=== PATIENT | female | born 1955 | race Caucasian/White ===

== ENCOUNTER 2023-05-10 09:17 | Day surgery (SDC) | payer MEDICARE, BC ==
[2023-05-09 11:08] VITALS: BMI 25.0
[2023-05-10] MEDS ORDERED: Oxymetazoline HCl 0.05% (30 ML BOT) ONE ×2 (10:12→11:00)
[2023-05-10 10:19] LABS: Hematocrit 40.1 % (36.0-47.0); Hemoglobin 13.5 g/dL (12.0-16.0)
[2023-05-10 10:44] LABS: Anion Gap 10 mmol/L (10-20); BUN (Urea Nitrogen) 20 mg/dL (9.8-20.1); Calc. Creatinine Clearance 59 mL/min (70-130); Calcium 9.4 mg/dL (7.8-10.44); Carbon Dioxide 25 mmol/L (23-31); Chloride 102 mmol/L (98-107); Estimated GFR 64; Glucose 89 mg/dL (80-115); Sodium 133 mmol/L (136-145)
[2023-05-10] MEDS ORDERED: Lidocaine 1% (PF) 30 ML VIAL ONE (11:00)
[2023-05-10] MEDS ORDERED: EPINEPHrine 1 MG/ML AMP ONE (11:00)
[2023-05-10] MEDS ORDERED: Midazolam HCl 2 mg/2 ml Vial ONE (11:02)
[2023-05-10] MEDS ORDERED: Dexmedetomidine 200 MCG/2 ML VIAL ONE (11:08)
[2023-05-10] MEDS ORDERED: fentaNYL PF 100 MCG/2 ML SYRINGE ONE (11:08)
[2023-05-10] MEDS ORDERED: SUGAMMADEX SODIUM 200 MG/2 ML VIAL ONE (11:08)
[2023-05-10] MEDS ORDERED: Ondansetron PF 4 MG/2 ML Vial ONE (11:18)
[2023-05-10] MEDS ORDERED: Lidocaine 1% PF 5 ML VIAL ONE (11:18)
[2023-05-10] MEDS ORDERED: Rocuronium Bromide 10 MG/ML (10ML VIAL) ONE (11:18)
[2023-05-10] MEDS ORDERED: Dexamethasone 20 MG/5 ML VIAL ONE (11:18)
[2023-05-10] MEDS ORDERED: PROPOFOL 200 MG/20 ML VIAL ONE (11:18)
[2023-05-10] MEDS ORDERED: Silver Nitrate Application 1 EACH ONE (11:40)
[2023-05-10] MEDS ORDERED: fentaNYL 50 mcg/mL 1 mL Vial ONE ×5 (12:08→13:22)
[2023-05-10] MEDS ORDERED: hydrALAZINE 20 MG/ML VIAL ONE (12:37)
[2023-05-10] MEDS ORDERED: Hydrocodone-Acetamin 15 ML UDCUP ONE (14:02)
== END 2023-05-10 14:45 | disposition home or self-care (01) ==
LOC: SDC 09:17
PROVIDERS: ATTEND Otolaryngology Plastic Surgery within the Head & Neck
PROC: 09BV8ZZ Excision of Left Ethmoid Sinus, Via Natural or Artificial Opening Endoscopic (ICD-10-PCS; principal; 2023-05-10)
PROC: 09BU8ZZ Excision of Right Ethmoid Sinus, Via Natural or Artificial Opening Endoscopic (ICD-10-PCS; 2023-05-10)
PROC: 099T8ZZ Drainage of Left Frontal Sinus, Via Natural or Artificial Opening Endoscopic (ICD-10-PCS; 2023-05-10)
PROC: 099Q8ZZ Drainage of Right Maxillary Sinus, Via Natural or Artificial Opening Endoscopic (ICD-10-PCS; 2023-05-10)
PROC: 099R8ZZ Drainage of Left Maxillary Sinus, Via Natural or Artificial Opening Endoscopic (ICD-10-PCS; 2023-05-10)
PROC: 099S8ZZ Drainage of Right Frontal Sinus, Via Natural or Artificial Opening Endoscopic (ICD-10-PCS; 2023-05-10)
DX: J33.0 Polyp of nasal cavity (principal); J32.4 Chronic pansinusitis; J34.89 Other specified disorders of nose and nasal sinuses; I10 Essential (primary) hypertension; E78.5 Hyperlipidemia, unspecified; Z79.899 Other long term (current) drug therapy
CPT/HCPCS: 31253; 31256; 80048; 85014; 85018; 93005; J0360; J3010; 88304; 93010; J0171; J1100; J2001; J2250; J2405; J2704